=== PATIENT | male | born 1990 | race African-American/Black ===

== ENCOUNTER 2019-04-09 05:23 | Emergency (ER) | payer OTHER ==
[2019-04-09] MEDS ORDERED: NA CHLORIDE 0.9% 1,000 ML ONE (05:46)
[2019-04-09] MEDS ORDERED: ONDANSETRON 4 MG/2 ML VIAL ONE (05:46)
[2019-04-09 06:20] LABS: ALT/SGPT 23 U/L (12-78); AST/SGOT 12 U/L (15-37); Albumin 3.8 g/dL (3.4-5.0); Alkaline Phosphatase 85 U/L (45-117); BUN Blood Urea Nitrogen 12 mg/dL (7-18); Bicarbonate 30 mmol/L (21-32); Bilirubin Direct 0.3 mg/dL (0-0.2); Bilirubin Total 0.8 mg/dL (0.2-1.0); Glucose Level 92 mg/dL (74-106); Lipase 194 U/L (73-393); Potassium 3.7 mmol/L (3.5-5.1); Protein, Total 7.4 g/dL (6.4-8.2); Sodium Level 142 mmol/L (136-145)
[2019-04-09 06:23] LABS: Absolute Lymphocytes (CBC) 0.9 K/uL (0.7-4.9); Basophils % 0.3 % (0-1.3); Hematocrit 45.5 % (39.6-49.0); Lymphocytes % 10.6 % (15.3-44.8); RBC Red Blood Cell Count 5.49 M/uL (4.33-5.43)
--- NOTE | 2019-04-09 07:06 | ER ---
Nurse's Notes [facility] Name: Isaac Mcrae Age: 28 yrs Sex: Male : 1990 Arrival Date: 04/09/2019 Time: 05:26 Bed 7 Private MD: Diagnosis: Nausea and vomiting Presentation: 04/09 05:36 Presenting complaint: Patient states: Abdominal pain and vomiting since 1800 last lp1 night; States pain to mid abdomen, unable to tolerate food or fluids. Transition of care: patient was not received from another setting of care. Onset of symptoms was April 08, 2019 at 18:00. Risk Assessment: Do you want to hurt yourself or someone else? Patient reports no desire to harm self or others. Initial Sepsis Screen: Does the patient meet any 2 criteria? No. Patient's initial sepsis screen is negative. Does the patient have a suspected source of infection? No. Patient's initial sepsis screen is negative. Care prior to arrival: None. 05:36 Method Of Arrival: Ambulatory lp1 05:36 Acuity: ARLET 3 lp1 Historical: - Allergies: 05:38 No Known Allergies; lp1 - Home Meds: 05:38 Albuterol Inhl [Active]; lp1 - PMHx: 05:38 Asthma; lp1 - PSHx: 05:38 Cholecystectomy; lp1 - Immunization history:: Adult Immunizations up to date. - Social history:: Smoking status: Patient/guardian denies using tobacco. - Ebola Screening: : No symptoms or risks identified at this time. Screenin:38 Abuse screen: Denies threats or abuse. Denies injuries from another. Nutritional lp1 screening: No deficits noted. Tuberculosis screening: No symptoms or risk factors identified. Fall Risk None identified. Assessment: 05:39 General: Appears in no apparent distress. comfortable, Behavior is calm, cooperative, aa1 appropriate for age. Pain: Complains of pain in umbilical area and right upper quadrant Pain began 1 day ago. Is continuous. Neuro: Level of Consciousness is awake, alert, obeys commands, Oriented to person, place, time, situation, Moves all extremities. Full function Gait is steady. Respiratory: Airway is patent Respiratory effort is even, unlabored, Respiratory pattern is regular, symmetrical. GI: Abdomen is non-distended, Bowel sounds present X 4 quads. Abd is soft X 4 quads Reports intolerance of fluids, intolerance of food, nausea, vomiting. : No signs and/or symptoms were reported regarding the genitourinary system. EENT: No signs and/or symptoms were reported regarding the EENT system. Derm: Skin is intact, is healthy with good turgor, Skin is pink, warm \T\ dry. Musculoskeletal: Circulation, motion, and sensation intact. Capillary refill < 3 seconds, Range of motion: intact in all extremities. 06:23 Reassessment: Patient states nausea relief at this time Patient states feeling better. lp1 06:49 Reassessment: Patient appears in no apparent distress at this time. Patient and/or aa1 family updated on plan of care and expected duration. Pain level reassessed. Patient is alert, oriented x 3, equal unlabored respirations, skin warm/dry/pink. Pt given water and tolerating well at this time. Vital Signs: 05:37 BP 123 / 76; Pulse 95; Resp 18; Temp 98.8(TE); Pulse Ox 98% on R/A; Weight 79.38 kg; lp1 Height 5 ft. 11 in. (180.34 cm); Pain 5/10; 06:49 BP 108 / 64; Pulse 89; Resp 16; Pulse Ox 97% on R/A; Pain 3/10; aa1 05:37 Body Mass Index 24.41 (79.38 kg, 180.34 cm) lp1 ED Course: 05:26 Patient arrived in ED. ds1 05:37 Triage completed. lp1 05:38 Arm band placed on. lp1 05:39 Beth Deleon RN is Primary Nurse. aa1 05:39 Patient has correct armband on for positive identification. lp1 05:51 Initial lab(s) drawn, by pa, sent to lab. Inserted saline lock: 20 gauge in right aa1 antecubital area, using aseptic technique. Blood collected. 05:57 Yumiko Crook F[facility]-C [facility]. kb 05:57 Fred Yap MD is Attending Physician. kb 07:02 Report given to Nancy Castillo RN \T\ Tyrone Kwok RN. aa1 Administered Medications: 05:51 Drug: Zofran 4 mg Route: IVP; Site: right antecubital; lp1 06:23 Follow up: Response: Nausea is decreased lp1 05:52 Drug: NS 0.9% 1000 ml Route: IV; Rate: 1000 ml; Site: right antecubital; lp1 Outcome: 07:06 Discharge ordered by . 07:20 Patient left the ED. sv Signatures: Yumiko Crook, THROW OUT CLERK-C THROW OUT CLERK-CkNancy Pond RN RN sv Beth Deleon RN RN aa1 Priscilla Ross [facility] Jaye Cortez RN RN lp1
--- NOTE | 2019-04-09 07:07 | EDPHYS ---
Physician Documentation [facility] Name: Isaac Mcrae Age: 28 yrs Sex: Male : 1990 Arrival Date: 04/09/2019 Time: 05:26 Bed 7 Private MD: ED Physician Fred Yap HPI: 04/09 06:02 This 28 yrs old Black Male presents to ER via Ambulatory with complaints of Abdominal kb Pain, Vomiting. 06:04 The patient presents to the emergency department with nausea, vomiting. Onset: The kb symptoms/episode began/occurred last night, at 19:00. Possible causes: bad food exposure, "nachos". The symptoms are aggravated by nothing. The symptoms are alleviated by nothing. Associated signs and symptoms: Pertinent positives: abdominal pain, nausea, vomiting, Pertinent negatives: anorexia, belching, constipation, diarrhea, dysuria, fever, flatulence, GI bleeding, hematuria. Severity of symptoms: At their worst the symptoms were moderate in the emergency department the symptoms are unchanged. The patient has not experienced similar symptoms in the past. The patient has not recently seen a physician. Pt reports he ate some nachos at about 1830 last night and started vomiting 20 minutes later. Reports vomiting has continued since then. Reports abd pain only when vomiting, no pain or tenderness during exam. . Historical: - Allergies: 05:38 No Known Allergies; lp1 - Home Meds: 05:38 Albuterol Inhl [Active]; lp1 - PMHx: 05:38 Asthma; lp1 - PSHx: 05:38 Cholecystectomy; lp1 - Immunization history:: Adult Immunizations up to date. - Social history:: Smoking status: Patient/guardian denies using tobacco. - Ebola Screening: : No symptoms or risks identified at this time. ROS: 06:03 Constitutional: Negative for fever, chills, and weight loss, ENT: Negative for injury, kb pain, and discharge, Neck: Negative for injury, pain, and swelling, Cardiovascular: Negative for chest pain, palpitations, and edema, Respiratory: Negative for shortness of breath, cough, wheezing, and pleuritic chest pain, Back: Negative for injury and pain, : Negative for injury, bleeding, discharge, and swelling, MS/Extremity: Negative for injury and deformity, Skin: Negative for injury, rash, and discoloration, Neuro: Negative for headache, weakness, numbness, tingling, and seizure. 06:03 Abdomen/GI: Positive for abdominal pain, nausea and vomiting, Negative for diarrhea, constipation, abdominal cramps, abdominal distension, anorexia. Exam: 06:02 Constitutional: This is a well developed, well nourished patient who is awake, alert, kb and in no acute distress. Head/Face: Normocephalic, atraumatic. ENT: Nares patent. No nasal discharge, no septal abnormalities noted. Tympanic membranes are normal and external auditory canals are clear. Oropharynx with no redness, swelling, or masses, exudates, or evidence of obstruction, uvula midline. Mucous membranes moist. Neck: Trachea midline, no thyromegaly or masses palpated, and no cervical lymphadenopathy. Supple, full range of motion without nuchal rigidity, or vertebral point tenderness. No Meningismus. Chest/axilla: Normal chest wall appearance and motion. Nontender with no deformity. No lesions are appreciated. Cardiovascular: Regular rate and rhythm with a normal S1 and S2. No gallops, murmurs, or rubs. Normal PMI, no JVD. No pulse deficits. Respiratory: Lungs have equal breath sounds bilaterally, clear to auscultation and percussion. No rales, rhonchi or wheezes noted. No increased work of breathing, no retractions or nasal flaring. Abdomen/GI: Soft, non-tender, with normal bowel sounds. No distension or tympany. No guarding or rebound. No evidence of tenderness throughout. Back: No spinal tenderness. No costovertebral tenderness. Full range of motion. Skin: Warm, dry with normal turgor. Normal color with no rashes, no lesions, and no evidence of cellulitis. MS/ Extremity: Pulses equal, no cyanosis. Neurovascular intact. Full, normal range of motion. Neuro: Awake and alert, GCS 15, oriented to person, place, time, and situation. Cranial nerves II-XII grossly intact. Motor strength 5/5 in all extremities. Sensory grossly intact. Cerebellar exam normal. Normal gait. Vital Signs: 05:37 BP 123 / 76; Pulse 95; Resp 18; Temp 98.8(TE); Pulse Ox 98% on R/A; Weight 79.38 kg; lp1 Height 5 ft. 11 in. (180.34 cm); Pain 5/10; 06:49 BP 108 / 64; Pulse 89; Resp 16; Pulse Ox 97% on R/A; Pain 3/10; aa1 05:37 Body Mass Index 24.41 (79.38 kg, 180.34 cm) lp1 MDM: 05:58 Patient medically screened. kb 06:02 Data reviewed: vital signs, nurses notes. Data interpreted: Pulse oximetry: on room air kb is 98 %. Interpretation: normal. 06:32 Counseling: I had a detailed discussion with the patient and/or guardian regarding: the kb historical points, exam findings, and any diagnostic results supporting the discharge/admit diagnosis, lab results, the need for outpatient follow up, a family practitioner, to return to the emergency department if symptoms worsen or persist or if there are any questions or concerns that arise at home. Special discussion: Based on the patient's Hx, exam, and Dx evaluation, there is no indication for emergent surgery or inpatient Tx. It is understood by the patient/guardian that if the Sx's persist or worsen they need to return immediately for re-evaluation. 07:06 ED course: Tolerating PO intake. kb 04/09 05:41 Order name: Basic Metabolic Panel; Complete Time: 06:31 rn 04/09 05:41 Order name: CBC with Diff; Complete Time: 06:31 rn 04/09 05:41 Order name: Hepatic Function; Complete Time: 06:31 rn 04/09 05:41 Order name: Lipase; Complete Time: 06:31 rn 04/09 05:41 Order name: IV Saline Lock; Complete Time: 05:52 04/09 05:41 Order name: Labs collected and sent; Complete Time: 05:52 04/09 06:32 Order name: PO challenge; Complete Time: 06:38 kb Administered Medications: 05:51 Drug: Zofran 4 mg Route: IVP; Site: right antecubital; lp1 06:23 Follow up: Response: Nausea is decreased lp1 05:52 Drug: NS 0.9% 1000 ml Route: IV; Rate: 1000 ml; Site: right antecubital; lp1 Disposition: 21:20 Co-signature as Attending Physician, Fred Yap MD. rn Disposition: 04/09/19 07:06 Discharged to Home. Impression: Nausea and vomiting. - Condition is Stable. - Discharge Instructions: Nausea and Vomiting, Adult, [id number], Food Poisoning, [id number]. - Prescriptions for Bentyl 20 mg Oral Tablet - take 1 tablet by ORAL route every 6 hours As needed; 20 tablet. Zofran 4 mg Oral Tablet - take 1 tablet by ORAL route every 6 hours As needed; 20 tablet. - Medication Reconciliation Form, Thank You Letter, Antibiotic Education, Prescription Opioid Use, Work release form form. - Follow up: Private Physician; When: 2 - 3 days; Reason: Recheck today's complaints, Continuance of care, Re-evaluation by your physician. Follow up: Emergency Department; When: As needed; Reason: Worsening of condition. Signatures: Dispatcher [employer] [facility] Yumiko Crook, AWAIS-C FOAMING MACHINE OPERATOR-Nancy Mo, JYOTI RN Fred Valencia MD MD rn Pena, Laura, JYOTI RN lp1 Corrections: (The following items were deleted from the chart) 07:07 05:43 Abdomen Pelvis W [id number] ordered. [facility] 07:20 07:06 04/09/2019 07:06 Discharged to Home. Impression: Nausea and vomiting. Condition sv is Stable. Discharge Instructions: Nausea and Vomiting, Adult, [id number], Food Poisoning, [id number]. Prescriptions for Bentyl 20 mg Oral Tablet - take 1 tablet by ORAL route every 6 hours As needed; 20 tablet, Zofran 4 mg Oral Tablet - take 1 tablet by ORAL route every 6 hours As needed; 20 tablet. and Forms are Medication Reconciliation Form, Thank You Letter, Antibiotic Education, Prescription Opioid Use. Follow up: Private Physician; When: 2 - 3 days; Reason: Recheck today's complaints, Continuance of care, Re-evaluation by your physician. Follow up: Emergency Department; When: As needed; Reason: Worsening of condition. kb
[2019-04-09 07:26] VITALS: TEMP 98.8
[2019-04-09 07:27] VITALS: BP 108/64; O2SAT 97
== END 2019-04-09 07:20 | disposition home or self-care (01) ==
LOC: ER 05:23
DX: R11.2 Nausea with vomiting, unspecified (principal); J45.909 Unspecified asthma, uncomplicated
CPT/HCPCS: 85025; 80048; 36415; 80076; 83690; 96374; 99283; J7030; J2405